=== PATIENT | male | born 1995 | race Caucasian/White ===

== ENCOUNTER 2016-12-17 19:05 | Inpatient (IN) | payer BC ==
[~2016-12-17] VITALS: Ht 180.3 cm; Wt 61.8 kg
[2016-12-17] MEDS ORDERED: ZYPR5TAB2 PO (19:17)
[2016-12-17] MEDS ORDERED: CEPH500C PO (19:17)
[2016-12-17] MEDS ORDERED: MELA5TAB21 PO (22:13)
[2016-12-18] MEDS ORDERED: ACETAMINOPHEN TAB 650MG DOSE (2X325MG) PO PRN (02:00)
[2016-12-18] MEDS ORDERED: MOM 30ML SUSPENSION UDC PO PRN (02:00)
[2016-12-18] MEDS ORDERED: MAALOX 30 ML SUSP *UDC PO PRN (02:00)
[2016-12-18 02:45] VITALS: BP 113/75
[2016-12-18] MEDS: OLANZapine 5 MG TAB PO SCH ×2 (03:22→20:55)
[2016-12-18] MEDS: CEPHALEXIN 500 MG CAP PO SCH ×3 (09:05→20:55)
[2016-12-18] MEDS: NICOTINE 7 MG/24 HR TRANSDERMAL TD SCH (09:05)
[2016-12-18 18:00] VITALS: BP 112/62
[2016-12-18] MEDS: traZODone 50 MG TAB PO PRN (20:55)
--- NOTE | 2016-12-19 01:47 | MHHPE ---
DATE OF ADMISSION: 12/18/2016 LEGAL STATUS ON ADMISSION: 9.39 legal status CHIEF COMPLAINT: "I have been feeling very depressed." HISTORY OF PRESENT ILLNESS: 20-year-old male with history of anxiety, depression and marijuana dependency, admitted to our unit in a 9.39 legal status. According to the chart, the patient was transferred from [place] after cutting himself with a steak knife to the head and arm. The patient is depressed and is displaying self destructive behavior. The patient was recently admitted to [facility] and discharged home to his family. The patient reports significant mood and emotional swings where he becomes very angry and "blows up." He yells and hurts himself when "I don't smoke pot." The patient admits the use of marijuana on a daily basis four or five times a day. He states that he is trying to stop. Before admission, he had an altercation with his mother and sister. His sister was calling the police and says that he panicked, he grabbed a steak knife from the kitchen and started hitting himself in the head. The patient also has old cuts in the arms from last Tuesday. The patient is calm during the interview, but admits that he becomes easily agitated. The patient also admits his marijuana dependency and wants to stop using. The patient is single and living with his parents, who are very supportive. During the interview, there is no evidence of psychotic symptoms. No auditory or visual hallucinations or delusions. PAST MEDICAL HISTORY: The patient denies any acute medical problems. PAST PSYCHIATRIC HISTORY: The patient reports being diagnosed of depression and anxiety. He says that he sees a therapist once a week. He has been prescribed Zyprexa 5 mg at bedtime by his primary care provider. The patient admits that he has a marijuana dependency. FAMILY PSYCHIATRIC HISTORY: The patient reports that his mother's side of the family has the tendency to depression and anxiety. No substance abuse in his relatives. SOCIAL HISTORY: The patient was raised by both parents. The patient reports a completely normal childhood with no abuse or neglect. The patient finished high school. The patient is currently "in between jobs." The patient is now living with his parents but was living independently when he was working. 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 His support system is reduced to his parents. SUBSTANCE ABUSE HISTORY: As above. The patient admits that he has a marijuana dependency and smokes four to five joints a day. REVIEW OF SYSTEMS: CONSTITUTIONAL: No weight loss, fevers, chills, weakness, or fatigue. HEENT: No visual loss, blurry vision, double vision, yellow sclerae. No hearing loss, sneezing, congestion, runny nose or sore throat. SKIN: No rash or itching. CARDIOVASCULAR: No chest pain, chest pressure, chest discomfort, palpitations, or edema. RESPIRATORY: No shortness of breath, cough or sputum. GASTROINTESTINAL: No anorexia, nausea, vomiting, or diarrhea. No abdominal pain or blood. GENITOURINARY: No burning or pain on urination. NEUROLOGIC: No headache, dizziness, syncope, paralysis, ataxia, numbness or tingling. MUSCULOSKELETAL: No muscle, back pain, joint pain or stiffness. HEMATOLOGIC: No anemia, bleeding or bruising. LYMPHATICS: No history of splenectomy. ENDOCRINOLOGIC: No reports of sweating, cold or heat intolerance. No polyuria or polydipsia. ALLERGIES: No history of asthma, hives, eczema or rhinitis. PHYSICAL EXAMINATION : As per physician's emergency room physician assistant. LABORATORIES ON ADMISSION: No laboratories were drawn in the emergency department. MENTAL STATUS EXAMINATION: The patient is dressed in [facility]. The patient is cooperative during examination. Speech is clear, coherent with normal rate and is spontaneous. The patient has fair eye contact. . Mood is anxious and depressed. Affect is restricted and labile. The patient is oriented to time, place, person and situation. Maintains attention and concentration correctly. Instant recall, recent and remote memory are intact. Thought processes are coherent, logical and goal directed. The patient does not have auditory or visual hallucinations. The patient does not have paranoid, persecutory, somatic, grandiose or buddhism delusions. The patient is denying homicidal thoughts. The patient was admitted with self inflicted wounds on the head and suicidal ideation. Judgment and insight are limited. DIAGNOSES: AXIS I: Unspecified depressive disorder, rule out major depressive disorder versus adjustment disorder with depressed mood. Rule out substance induced mood disorder. Marijuana dependency. AXIS II: Deferred. AXIS III: None acute. INITIAL TREATMENT PLAN: Patient was admitted on a 9.39 legal status. Complete history was obtained. With his permission, family will be contacted, and database will be expanded. His medication regimen will be reviewed and changed accordingly. He will be provided with protected environment. He will be treated with individual, group, and milieu therapies. He will also receive supportive psychoeducation. Discharge planning will commence immediately. Length of stay will be between 5 and 7 days. Outpatient followup will be strongly recommended. The treatment plan will focus initially on depression, risk for suicide, and substance abuse.
[2016-12-19 06:33] VITALS: BP 102/60
[2016-12-19] MEDS: NICOTINE 7 MG/24 HR TRANSDERMAL TD SCH (07:57)
[2016-12-19] MEDS: CEPHALEXIN 500 MG CAP PO SCH ×3 (07:57→21:02)
[2016-12-19 18:00] VITALS: BP 125/57
[2016-12-19] MEDS: traZODone 50 MG TAB PO PRN (21:03)
[2016-12-19] MEDS: OLANZapine 5 MG TAB PO SCH (21:03)
--- NOTE | 2016-12-20 01:46 | IPN ---
DATE OF SERVICE: 12/19/2016 21-year-old male with history of anxiety, depression, and marijuana dependency, admitted after he cut himself with a steak knife forehead and the arm. SUBJECTIVE: "I'm feeling a little better." OBJECTIVE: No major changes from yesterday, although he appears to be less depressed. He adapted well to the unit and he is interacting with other patients and staff. Patient denies any side effects from the medication. The patient reports better sleep after started with Zyprexa and trazodone. MENTAL STATUS EXAMINATION: Patient is dressed in [facility]. Patient is cooperative during the exam, has fair eye contact. Speech is slow and monotone. Mood is depressed and anxious. Affect is restricted. No evidence of delusions or hallucinations. Memory is fair. Patient is fully oriented. Associations are intact. Thinking is logical. Thought content is appropriate. Patient is able to contract for safety during the interview and denies suicidal or homicidal ideation. Insight and judgment is limited. ASSESSMENT: 1. Depression. 2. Cannabis dependency. PLAN: 1. Continue Zyprexa 5 mg by mouth nightly. 2. Trazodone 50 mg by mouth nightly as needed for insomnia. 3. Continue medication management, individual and group therapy.
[2016-12-20 06:49] VITALS: BP 112/58
[2016-12-20] MEDS: NICOTINE 7 MG/24 HR TRANSDERMAL TD SCH (08:21)
[2016-12-20] MEDS: CEPHALEXIN 500 MG CAP PO SCH ×3 (08:21→20:55)
--- NOTE | 2016-12-20 09:42 | MHIPNPDOC ---
[facility] Progress Note Progress Note DATE OF SERVICE: 12/20/16 HISTORY: Patient is 21-year-old single male who was transferred from [place] after cutting himself with a steak knife to the head and arm after argument with girlfriend who is mother of his 2 children, has history of anxiety, depression, and self-injurious behavior, uses marijuana daily and also relates on daily basis. Patient indicates he experiences agitation, mood swings, and harms himself when he does not have access to marijuana, notes he generally smokes approximately 4 times per day. Patient was recently discharged from [facility], indicates he has been admitted to [place] [id number] in the recent past. Patient has 2 children who are currently living in [place] with her mother. Assistant Professor Of Archaeology met with patient today to assess treatment progress on inpatient unit. Patient indicates he is feeling considerably better, reports improvement to symptoms of anxiety and depression, denies suicidal and homicidal ideation, denies audiovisual hallucinations, denies urge to engage in self-injurious behavior. Patient speaks openly about events which led to current hospitalization and informs tag writer he is aware he is in need of substance abuse treatment and is in agreement to participating in outpatient, but not inpatient treatment at this time. Patient denies symptoms of craving or withdrawal informs tag writer he is now not smoked marijuana for 72 hours, denies urge and states he feels motivated to continue with abstinence. Patient reports improvement to sleep, states appetite is stable, reports improvement to energy level, and denies challenges with concentration and focus. Patient has multiple lacerations to forearms and sutures to forehead, denies symptoms of physical pain, and presents with no signs of acute distress at time of interaction. Patient notes he trialed BuSpar in the past which "made me sick," started Celexa noting "the medication was taking too long," adds he was started on Zyprexa last Tuesday by PCM at the request of outpatient psychotherapist, notes medication is working "absolutely phenomenally." VITAL SIGNS: See below. NEW TEST RESULTS: No new results. Patient denies chronic medical problems and denies history of seizure or head injury. EKG pending CURRENT MEDICATIONS: See below. MENTAL STATUS EXAMINATION: Patient is a 21-year old male, who is easily engaged, pleasant and cooperative, exhibits adequate personal hygiene, makes good eye contact, ambulates with steady gait, appears stated age, presents with multiple lacerations to forearms and sutures to 4 head Speech: Is of normal rate, rhythm, volume, spontaneous, coherent Language skills are within normal limits Thought processes including: Linear, logical, goal-directed. Thought content: Logical, rational, no tangentiality noted no paranoia. Abstract reasoning, and computation: Appear intact Description of associations: Intact Description of abnormal or psychotic thoughts: Denies suicidal or homicidal ideation, denies auditory or visual hallucinations, denies urge to engage in self-injurious behavior, does not appear to be responding to internal stimuli, does not endorse bizarre paranoid ideation, denies preoccupation with violence and/or session. Judgment: Poor, some improvement during treatment. Insight: Limited, some improvement noted. Orientation: A and O 3. Recent and remote memory: Appears intact. Attention span and concentration: Adequate. Language: Adequate. Fund of knowledge: Adequate. Mood: "Much better, hopeful now." Patient appears depressed and anxious, no mood lability noted at time of interaction Affect: Constricted, some brightening, congruent with mood DIAGNOSES: Unspecified depressive disorder, rule out major depressive disorder, rule out substance-induced mood disorder, marijuana use disorder ASSESSMENT: Patient is 21-year-old male who appears to be adjusting to unit well , is visible, pleasant and cooperative, and participating in unit programming. Patient states he is feeling "much better" since starting olanzapine, adds he no longer feels "mentally exhausted." Patient has been utilizing trazodone for sleep with good effect. Patient denies medication side effects. Patient denies current suicidal and homicidal ideation and verbalizes awareness of how to access supportive services on the unit if needed. Will monitor patient's response to medications and we'll monitor for side effects, will also evaluate patient's safety, resolution of suicidal ideation and urge to engage in self- injurious behavior, and discharge readiness. Patient indicates when compared for discharge he plans to discharge to home with parents who live in [place] where he will remain for 30 days while he participates in outpatient substance abuse treatment. Recommendation made for inpatient substance abuse treatment, patient is declining at this time. Patient states he is also agreeable to participating in psychotherapy and medication management services. MANAGEMENT PLAN: Continue olanzapine 5 mg po q hs and trazodone 50 mg po hs PRN insomnia Maintain safety precautions Patient to attend groups and participate in unit programming to develop coping strategies Engage patient in discharge planning process and arrange meeting with support system to ensure safe discharge planning when appropriate Patient to follow up with PCM upon discharge TIME SPENT: 35 minutes. Vital Signs Vital Signs Date Time Temp Pulse Resp B/P (MAP) Pulse Ox O2 Delivery O2 Flow Rate FiO2 12/20/16 06:49 97.3 61 16 112/58 (76) 12/18/16 02:45 98 Room Air Current Medications Current Medications Acetaminophen (Tylenol Tab) 650 mg Q6HP PRN PO HEADACHE or DISCOMFORT; Start at 02:00; Stop 01/17/17 at 01:59 Al Hydrox/Mg Hydrox/Simethicone (Mylanta) 30 ml Q4HP PRN PO HEARTBURN/ INDIGESTION; Start 12/18/16 at 02:00; Stop 01/17/17 at 01:59 Cephalexin Monohydrate (Keflex) 500 mg TID PO Last administered on 12/20/16 08 :21; Start 12/18/16 at 09:00; Stop 12/25/16 at 08:59 Home Med (Med Rec Complete!) ASDIRECTED XX ; Start 12/17/16 at 22:15; Stop 07/24 at 22:20; Status DC Magnesium Hydroxide (Milk Of Magnesia) 30 ml DAILYPRN PRN PO CONSTIPATION; Start 12/18/16 at 02:00; Stop 01/17/17 at 01:59 Nicotine (Nicoderm Cq 7 Mg) 1 patch DAILY TD Last administered on 12/20/16 08: 21; Start 12/18/16 at 09:00; Stop 01/17/17 at 08:59 Olanzapine (ZyPREXA) 5 mg QHS PO Last administered on 12/19/16 21:03; Start at 21:00; Stop 01/16/17 at 20:59 Trazodone HCl (Desyrel) 50 mg QHSP PRN PO INSOMNIA Last administered on 21:03; Start 12/18/16 at 02:00; Stop 01/17/17 at 01:59 Allergies Coded Allergies: No Known Drug Allergy (Verified Allergy, Unknown, 12/17/16) Buspirone (Unverified Adverse Reaction, Unknown, Dizziness, Nausea, Vomiting, 12/17/16) Rika Chakraborty December 20, 2016 09:42
--- NOTE | 2016-12-20 10:14 | HPEPDOC ---
Medical History and Physical Date of Admission December 18, 2016 at 01:49 History and Physical PCP: Dr Lyle Arreola [facility]. ATTENDING: Dr. Idris García HPI: 20yoM admitted to [facility] for unspecified depressive disorder, being medically examined today. Patient was transferred from [facility] after stabbing himself with a kitchen knife several times. Denies any fevers, chills, weakness, fatigue, ROMERO, CP, SOB, cough, palpitations, abdominal pain, N/V/D or changes in bowel or bladder habits. PMHx: Depression Anxiety Insomnia Self-mutilation History of SI with admissions to [facility] 01/21, 11/22 and 12/22. Tetanus vaccine 05/23 per patient PSHX: Denies SOCHX: Resides in: [facility] Marital Status: Single Kids: 2 Employment: Unemployed Tobacco use: Vapes daily. ETOH: Denies Illicit Drugs: Marijuana daily IV Drug Use: Denies Tattoos done unprofessionally: Denies FAMHX: Mother: Alive, well Father: Alive, well Siblings: Alive, well Children: Alive, well Unexpected deaths due to medical reasons: None. ROS: As noted in HPI, otherwise 11pt ROS of systems reviewed and unremarkable. PE: GEN: 20 yo M, appears stated age. Well-nourished, well developed. No acute distress. Alert and oriented x 3. Pleasant, interactive. HEENT: Normocephalic, atraumatic. Pupils are equal, round, and reactive to light. Extraocular movements are intact. No nystagmus appreciated. Sclera are nonicteric. Conjunctiva without injection. Nose midline. Nasal turbinates without bogginess. EACs both patent BL. TMs both visualized and mcelroy with good cone of light, no bulging or erythema. No facial asymmetry. Moist mucous membranes. Dentition fair. Pharynx pink and moist, no cobblestoning. Neck supple , trachea midline. No lymphadenopathy or thyromegaly appreciated. CHEST: Regular rate and rhythm, +S1, +S2 LUNGS: Clear to auscultation bilaterally. No wheezes, rales, or rhonchi. Breathing appears symmetric and easy. Patient is speaking in full sentences. No accessory muscle use. ABD: Round, soft, non-tender, non-distended. +Bowel sounds throughout. No rebound or guarding. No costovertebral angle tenderness. EXT: Pulses 2+ bilaterally dorsalis pedis and radial. No lower extremity edema appreciated. SKIN: [place], dry, warm. Capillary refill <2sec. No rashes. Sutures are intact anterior scalp and right ear. He has healing lacerations to the forearms which he states are from last Tuesday. NEURO: Alert and oriented x 3. Cranial nerves III-XII are intact. No focal deficits appreciated. EKG: Pending. Labs pending A&P: 20yoM admitted to [facility] for unspecified depressive disorder 1. Psych. Plan per Psychiatry. Obtain baseline EKG to assure the safety of psychiatric medications as they can prolong the QT interval. 2. Nicotine dependence. Patch available. 3. Lacerations. Sutures intact. No signs of infection at this time. Keep areas clean and dry. Apply Bactroban as needed. Continue Keflex 500 mg 3 times a day 10 days. 4. Follow up with PCP on discharge. 5. Substance use. Per psychiatry. 6. Staff member Nishant present throughout exam. Vital Signs Vital Signs Date Time Temp Pulse Resp B/P (MAP) Pulse Ox O2 Delivery O2 Flow Rate FiO2 12/20/16 06:49 97.3 61 16 112/58 (76) 12/18/16 02:45 98 Room Air Home Medications Scheduled Cephalexin Monohydrate (Cephalexin) 500 Mg Cap, 500 MG PO DAILY For 10 days. New RX; PT has not started first dose Olanzapine (Zyprexa) 5 Mg Tab, 5 MG PO QHS Scheduled PRN Melatonin (Melatonin) 5 Mg Tab, 5 MG PO QHS PRN for SLEEP Allergies Coded Allergies: No Known Drug Allergy (Verified Allergy, Unknown, 12/17/16) Buspirone (Unverified Adverse Reaction, Unknown, Dizziness, Nausea, Vomiting, 12/17/16) Harriett [place] December 20, 2016 10:14
[2016-12-20] MEDS ORDERED: MUPIROCIN 2% CREAM 30GM TOP PRN (10:15)
[2016-12-20 18:00] VITALS: BP 124/84
[2016-12-20] MEDS: traZODone 50 MG TAB PO PRN (20:55)
[2016-12-20] MEDS: OLANZapine 5 MG TAB PO SCH (20:55)
[2016-12-21 06:31] VITALS: BP 118/57
[2016-12-21 07:53] LABS: MEAN CORPUSCULAR HEMOGLOBIN 30.7 pg (27.0-33.0); MEAN CORPUSCULAR HGB CONC 34.1 g/dl (32.0-36.5); RED CELL DISTRIBUTION WIDTH 12.7 % (11.5-14.5); WHITE BLOOD COUNT 5.8 K/mm3 (4.0-10.0)
[2016-12-21] MEDS: CEPHALEXIN 500 MG CAP PO SCH ×3 (08:20→20:37)
[2016-12-21] MEDS: NICOTINE 7 MG/24 HR TRANSDERMAL TD SCH (08:21)
[2016-12-21 08:35] LABS: ALBUMIN 4.3 GM/DL (3.2-5.2); ALBUMIN/GLOBULIN RATIO 1.54 (1.00-1.93); ALKALINE PHOSPHATASE 82 U/L (45-117); ALT/SGPT 20 U/L (12-78); ANION GAP 9 MEQ/L (8-16); AST/SGOT 15 U/L (15-37); BILIRUBIN,TOTAL 0.4 MG/DL (0.2-1.0); BLOOD UREA NITROGEN 12 MG/DL (7-18); CALCIUM LEVEL 8.8 MG/DL (8.5-10.1); CARBON DIOXIDE LEVEL 28 MEQ/L (21-32); CHLORIDE LEVEL 107 MEQ/L (98-107); CREATININE FOR GFR 1.03 MG/DL (0.70-1.30); GLOMERULAR FILTRATION RATE > 60.0 (>60); GLUCOSE, FASTING 95 MG/DL (70-105); POTASSIUM SERUM 4.2 MEQ/L (3.5-5.1); SODIUM LEVEL 144 MEQ/L (136-145); TOTAL PROTEIN 7.1 GM/DL (6.4-8.2)
--- NOTE | 2016-12-21 17:46 | MHIPNPDOC ---
[facility] Progress Note Progress Note DATE OF SERVICE: 12/21/16 HISTORY: Patient is 21-year-old single male who was transferred from [place] after cutting himself with a steak knife to the head and arm after argument with girlfriend who is mother of his 2 children, has history of anxiety, depression, and self-injurious behavior, uses marijuana daily and also relates on daily basis. Patient indicates he experiences agitation, mood swings, and harms himself when he does not have access to marijuana, notes he generally smokes approximately 4 times per day. Patient was recently discharged from [facility], indicates he was admitted to [place] [id number] in the recent past in 01/21, 11/22, and 12/22. Patient has 2 children who are currently living in [place] with her mother. Grizzlyman met with patient today to assess treatment progress on inpatient unit. Patient indicates his mood continues to improve and he reports some reduction to symptoms of anxiety, denies suicidal and homicidal ideation, denies audiovisual hallucinations, denies urge to engage in self-injurious behavior. Patient denies symptoms of craving or withdrawal, again speaks openly regarding concerns he has of repeating self-injurious behavior exhibited just prior to current hospitalization, states he feels motivated to participate in outpatient substance abuse treatment, is declining inpatient substance abuse treatment at this time. Patient reports improvement to sleep, states appetite is stable, reports improvement to energy level, and denies challenges with concentration and focus. Patient has multiple lacerations to forearms and sutures to forehead , denies symptoms of physical pain, and presents with no signs of acute distress at time of interaction. Patient states parents have been visiting him here in the hospital, indicates family is supportive. Patient denies symptoms of physical pain and presents with no signs of acute distress at time of interaction Patient notes he trialed BuSpar in the past which "made me sick," started Celexa noting "the medication was taking too long," adds he was started on Zyprexa last Tuesday by PCM at the request of outpatient psychotherapist, notes medication is working "absolutely phenomenally." VITAL SIGNS: See below. NEW TEST RESULTS: No new results. Patient denies chronic medical problems and denies history of seizure or head injury. EKG pending CURRENT MEDICATIONS: See below. MENTAL STATUS EXAMINATION: Patient is a 21-year old male, who is easily engaged, pleasant and cooperative, exhibits adequate personal hygiene, makes fair eye contact, ambulates with steady gait, appears stated age, presents with multiple lacerations to forearms and sutures to 4 head Speech: Is of normal rate, rhythm, volume, spontaneous, coherent Language skills are within normal limits Thought processes including: Linear, logical, goal-directed. Thought content: Logical, rational, no tangentiality noted or paranoia. Abstract reasoning, and computation: Appear intact Description of associations: Intact Description of abnormal or psychotic thoughts: Denies suicidal or homicidal ideation, denies auditory or visual hallucinations, denies urge to engage in self-injurious behavior, does not appear to be responding to internal stimuli, does not endorse bizarre paranoid ideation, denies preoccupation with violence and/or session. Judgment: Poor, some improvement during treatment. Insight: Limited, continues to improve Orientation: A and O 3. Recent and remote memory: Appears intact. Attention span and concentration: Adequate. Language: Adequate. Fund of knowledge: Adequate. Mood: "I feel okay, I feel hopeful about rehabilitation and getting my life back together." Patient appears less depressed, continues to appear anxious, no mood lability noted at time of interaction Affect: Constricted, some brightening, congruent with mood DIAGNOSES: Unspecified depressive disorder, rule out major depressive disorder, rule out substance-induced mood disorder, marijuana use disorder ASSESSMENT: Patient is 21-year-old male who continues to adjust to unit, is visible, pleasant and cooperative, and participating in unit programming. Patient states he continues to feel olanzapine is helpful In controlling symptoms. Patient has been utilizing trazodone for sleep with good effect. Patient denies medication side effects. Patient denies current suicidal and homicidal ideation and verbalizes awareness of how to access supportive services on the unit if needed. Will monitor patient's response to medications and we'll monitor for side effects, will also evaluate patient's safety, resolution of suicidal ideation and urge to engage in self-injurious behavior, and discharge readiness. Patient indicates when prepared for discharge he plans to discharge to home with parents who live in [place] where he will remain for 30 days while he participates in outpatient substance abuse treatment. Recommendation made for inpatient substance abuse treatment, patient is declining at this time. Patient states he is also agreeable to participating in psychotherapy and medication management services. MANAGEMENT PLAN: Continue olanzapine 5 mg po q hs and trazodone 50 mg po hs PRN insomnia Maintain safety precautions Patient to attend groups and participate in unit programming to develop coping strategies Engage patient in discharge planning process and arrange meeting with support system to ensure safe discharge planning when appropriate Patient to follow up with PCM upon discharge TIME SPENT: 35 minutes. Vital Signs Vital Signs Date Time Temp Pulse Resp B/P (MAP) Pulse Ox O2 Delivery O2 Flow Rate FiO2 12/21/16 06:31 97.2 73 16 118/57 (77) 12/18/16 02:45 98 Room Air Laboratory Data 24H Labs Laboratory Tests 2 12/21/16 07:35: Anion Gap 9, Glomerular Filtration Rate > 60.0, Blood Urea Nitrogen 12, Creatinine 1.03, Sodium Level 144, Potassium Level 4.2, Chloride Level 107, Carbon Dioxide Level 28, Calcium Level 8.8, Aspartate Amino Transf (AST/SGOT) 15 , Alanine Aminotransferase (ALT/SGPT) 20, Alkaline Phosphatase 82, Total Bilirubin 0.4, Total Protein 7.1, Albumin 4.3, Albumin/Globulin Ratio 1.54, Thyroid Stimulating Hormone (TSH) 1.290 CBC/BMP Laboratory Tests 12/21/16 07:35 Red Blood Count 4.83, Mean Corpuscular Volume 90.0, Mean Corpuscular Hemoglobin 30.7, Mean Corpuscular Hemoglobin Concent 34.1, Red Cell Distribution Width 12.7 , Calcium Level 8.8, Aspartate Amino Transf (AST/SGOT) 15, Alanine Aminotransferase (ALT/SGPT) 20, Alkaline Phosphatase 82, Total Bilirubin 0.4, Total Protein 7.1, Albumin 4.3 Current Medications Current Medications Acetaminophen (Tylenol Tab) 650 mg Q6HP PRN PO HEADACHE or DISCOMFORT; Start at 02:00; Stop 01/17/17 at 01:59 Al Hydrox/Mg Hydrox/Simethicone (Mylanta) 30 ml Q4HP PRN PO HEARTBURN/ INDIGESTION; Start 12/18/16 at 02:00; Stop 01/17/17 at 01:59 Cephalexin Monohydrate (Keflex) 500 mg TID PO Last administered on 12/21/16t 15 :26; Start 12/18/16 at 09:00; Stop 12/25/16 at 08:59 Home Med (Med Rec Complete!) ASDIRECTED XX ; Start 12/17/16 at 22:15; Stop 07/24 at 22:20; Status DC Magnesium Hydroxide (Milk Of Magnesia) 30 ml DAILYPRN PRN PO CONSTIPATION; Start 12/18/16 at 02:00; Stop 01/17/17 at 01:59 Mupirocin (Bactroban 2% Cream) 1 dose BIDP PRN TOP REDNESS/IRRITATION; Start at 10:15; Stop 01/19/17 at 10:14 Nicotine (Nicoderm Cq 7 Mg) 1 patch DAILY TD Last administered on 12/21/16 08: 21; Start 12/18/16 at 09:00; Stop 01/17/17 at 08:59 Olanzapine (ZyPREXA) 5 mg QHS PO Last administered on 12/20/16 20:55; Start at 21:00; Stop 01/16/17 at 20:59 Trazodone HCl (Desyrel) 50 mg QHSP PRN PO INSOMNIA Last administered on 20:55; Start 12/18/16 at 02:00; Stop 01/17/17 at 01:59 Allergies Coded Allergies: No Known Drug Allergy (Verified Allergy, Unknown, 12/17/16) Buspirone (Unverified Adverse Reaction, Unknown, Dizziness, Nausea, Vomiting, 12/17/16) Rika Chakraborty December 21, 2016 17:46
[2016-12-21 18:07] VITALS: BP 113/59
[2016-12-21] MEDS: traZODone 50 MG TAB PO PRN (20:37)
[2016-12-21] MEDS: OLANZapine 5 MG TAB PO SCH (20:37)
--- NOTE | 2016-12-22 06:15 | ECGEPIP ---
Stationary ECG Study [facility] Test Date: 2016-12-21 Pat Name: RAVIN EGAN Department: Room: [place] [address] Gender: M Can Piler: NEGAR : 1995 Requested By: Harriett Stanford Order Number: [id number] Reading MD: Rae Caban Measurements Intervals [place] Rate: 69 P: 50 IN: 138 QRS: 75 QRSD: 95 T: 47 QT: 375 QTc: 402 Interpretive Statements SINUS RHYTHM WITH SINUS ARRHYTHMIA PROMINENT VOLTAGE PROBABLE SEPTAL EARLY REPOLAR U WAVES NO PRIOR Electronically Signed On 12-22-2016 6:14:48 EDT by Rae Caban
[2016-12-22 06:45] VITALS: BP 109/65
[2016-12-22] MEDS: CEPHALEXIN 500 MG CAP PO SCH ×3 (08:01→20:38)
[2016-12-22] MEDS: NICOTINE 7 MG/24 HR TRANSDERMAL TD SCH (08:02)
--- NOTE | 2016-12-22 08:57 | MHIPNPDOC ---
[facility] Progress Note Progress Note DATE OF SERVICE: 12/22/16 HISTORY: Patient is 21-year-old single male who was transferred from [place] after cutting himself with a steak knife to the head and arm after argument with girlfriend who is mother of his 2 children, has history of anxiety, depression, and self-injurious behavior, uses marijuana daily and also relates on daily basis. Patient indicates he experiences agitation, mood swings, and harms himself when he does not have access to marijuana, notes he generally smokes approximately 4 times per day. Patient was recently discharged from [facility], indicates he was admitted to [place] [address] in the recent past in 01/21, 11/22, and 12/22. Patient has 2 children who are currently living in [place] with her mother. Desk Officer met with patient today to assess treatment progress on inpatient unit. Patient indicates he is feeling "much better," denies symptoms of anxiety and depression, denies suicidal and homicidal ideation, denies audiovisual hallucinations, denies urge to engage in self-injurious behavior. Patient denies symptoms of craving or withdrawal, verbalizes insight in terms of need for substance abuse treatment and psychotherapy to address impulsivity and self- injurious behavior, reiterates today he feels motivated to participate in outpatient substance abuse treatment, is declining inpatient substance abuse treatment at this time, denies symptoms of craving or withdrawal. Patient indicates he is also agreeable to participating in outpatient psychotherapy. Patient states he is sleeping well, notes appetite is stable, reports improvement to energy level, and denies challenges with concentration and focus. Patient has multiple lacerations to forearms and sutures to forehead which appear to be healing without complication, denies symptoms of physical pain, and presents with no signs of acute distress at time of interaction. Patient reiterates he feels he has strong support system, parents have been visiting, indicates family is supportive. Of Note: Patient notes he trialed BuSpar in the past which "made me sick," started Celexa noting "the medication was taking too long," adds he was started on Zyprexa last Tuesday by PCM at the request of outpatient psychotherapist, notes medication is working "absolutely phenomenally." VITAL SIGNS: See below. 12/22/16 NEW TEST RESULTS: No new results. Patient denies chronic medical problems and denies history of seizure or head injury. UDS completed by referring hospital on 12/17/16 negative for opiates, benzodiazepines, and cocaine 12/22/16 EKG SINUS RHYTHM WITH SINUS ARRHYTHMIA PROMINENT VOLTAGE PROBABLE SEPTAL EARLY REPOLAR U WAVES NO PRIOR. Patient is asymptomatic, attempts X 3 made to reach hospitalist to request consult to evaluate EKG. CURRENT MEDICATIONS: See below. MENTAL STATUS EXAMINATION: Patient is a 21-year old male, who is easily engaged, pleasant and cooperative, exhibits adequate personal hygiene, makes fair eye contact, ambulates with steady gait, appears stated age, presents with multiple lacerations to forearms and sutures to 4 head Speech: Is of normal rate, rhythm, volume, spontaneous, coherent Language skills are within normal limits Thought processes including: Linear, logical, goal-directed. Thought content: Logical, rational, no tangentiality noted or paranoia. Abstract reasoning, and computation: Appear intact Description of associations: Intact Description of abnormal or psychotic thoughts: Denies suicidal or homicidal ideation, denies auditory or visual hallucinations, denies urge to engage in self-injurious behavior, does not appear to be responding to internal stimuli, does not endorse bizarre paranoid ideation, denies preoccupation with violence and/or session. Judgment: Poor, some improvement during treatment. Insight: Limited, continues to improve Orientation: A and O 3. Recent and remote memory: Appears intact. Attention span and concentration: Adequate. Language: Adequate. Fund of knowledge: Adequate. Mood: "I feel better and I feel lois I'm ready to go home with my parents." Patient denies anxiety and depression, no mood lability noted at time of interaction Affect: Full range, brightens frequently and appropriately, congruent with mood DIAGNOSES: Unspecified depressive disorder, rule out major depressive disorder, rule out substance-induced mood disorder, marijuana use disorder ASSESSMENT: Patient is 21-year-old male who continues to adjust to unit, is visible, pleasant and cooperative, and participating in unit programming. Patient states he continues to feel olanzapine is helpful in controlling symptoms. Patient has been utilizing trazodone for sleep with good effect. Patient denies medication side effects. Patient denies current suicidal and homicidal ideation and verbalizes awareness of how to access supportive services on the unit if needed. Will monitor patient's response to medications and will monitor for side effects, will also evaluate patient's safety, resolution of suicidal ideation and urge to engage in self-injurious behavior, and discharge readiness. Will begin to prepare patient for discharge which is slated for either or Tuesday, appraisal coordinator is currently attempting to make arrangements with patient's parents for family meeting. Patient indicates when discharged he plans to discharge to home with parents who live in [place] where he will remain for 1-2 months while he participates in outpatient substance abuse treatment. Recommendation made for inpatient substance abuse treatment, patient is declining at this time. Patient states he is also agreeable to resuming outpatient psychotherapy and medication management services through PCM. MANAGEMENT PLAN: Continue olanzapine 5 mg po q hs and trazodone 50 mg po hs PRN insomnia Maintain safety precautions Patient to attend groups and participate in unit programming to develop coping strategies Engage patient in discharge planning process and arrange meeting with support system to ensure safe discharge planning when appropriate Patient to follow up with PCM upon discharge TIME SPENT: 35 minutes. Vital Signs Vital Signs Date Time Temp Pulse Resp B/P (MAP) Pulse Ox O2 Delivery O2 Flow Rate FiO2 12/22/16 06:45 98.1 63 18 109/65 (80) 12/18/16 02:45 98 Room Air Current Medications Current Medications Acetaminophen (Tylenol Tab) 650 mg Q6HP PRN PO HEADACHE or DISCOMFORT; Start at 02:00; Stop 01/17/17 at 01:59 Al Hydrox/Mg Hydrox/Simethicone (Mylanta) 30 ml Q4HP PRN PO HEARTBURN/ INDIGESTION; Start 12/18/16 at 02:00; Stop 01/17/17 at 01:59 Cephalexin Monohydrate (Keflex) 500 mg TID PO Last administered on 12/22/16t 08 :01; Start 12/18/16 at 09:00; Stop 12/25/16 at 08:59 Home Med (Med Rec Complete!) ASDIRECTED XX ; Start 12/17/16 at 22:15; Stop 07/24 at 22:20; Status DC Magnesium Hydroxide (Milk Of Magnesia) 30 ml DAILYPRN PRN PO CONSTIPATION; Start 12/18/16 at 02:00; Stop 01/17/17 at 01:59 Mupirocin (Bactroban 2% Cream) 1 dose BIDP PRN TOP REDNESS/IRRITATION; Start at 10:15; Stop 01/19/17 at 10:14 Nicotine (Nicoderm Cq 7 Mg) 1 patch DAILY TD Last administered on 12/22/16 08: 02; Start 12/18/16 at 09:00; Stop 01/17/17 at 08:59 Olanzapine (ZyPREXA) 5 mg QHS PO Last administered on 12/21/16 20:37; Start at 21:00; Stop 01/16/17 at 20:59 Trazodone HCl (Desyrel) 50 mg QHSP PRN PO INSOMNIA Last administered on 20:37; Start 12/18/16 at 02:00; Stop 01/17/17 at 01:59 Allergies Coded Allergies: No Known Drug Allergy (Verified Allergy, Unknown, 12/17/16) Buspirone (Unverified Adverse Reaction, Unknown, Dizziness, Nausea, Vomiting, 12/17/16) Rika Chakraborty December 22, 2016 08:57
[2016-12-22 18:01] VITALS: BP 134/70
[2016-12-22] MEDS: OLANZapine 5 MG TAB PO SCH (20:38)
[2016-12-22] MEDS: traZODone 50 MG TAB PO PRN (20:38)
[2016-12-23 06:34] VITALS: BP 116/80
[2016-12-23] MEDS: CEPHALEXIN 500 MG CAP PO SCH (08:08)
[2016-12-23] MEDS: NICOTINE 7 MG/24 HR TRANSDERMAL TD SCH (08:09)
[2016-12-23] MEDS ORDERED: CEPH500C PO (09:44)
[2016-12-23] MEDS ORDERED: OLAN5TAB PO (10:50)
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
== END 2016-12-23 11:25 | disposition home or self-care (01) | DRG 754 ==
LOC: M ED 20:08 → M ED INP 12-18 01:49 → M PSY 12-18 02:40
PROVIDERS: ADMIT Psychiatry & Neurology Psychiatry; ATTEND Psychiatry & Neurology Psychiatry
DX: F32.9 Major depressive disorder, single episode, unspecified (principal); F19.24 Other psychoactive substance dependence with psychoactive substance-induced mood disorder; F12.90 Cannabis use, unspecified, uncomplicated; Z91.5 Personal history of self-harm; F17.290 Nicotine dependence, other tobacco product, uncomplicated; S01.01XD Laceration without foreign body of scalp, subsequent encounter; S01.311D Laceration without foreign body of right ear, subsequent encounter; Z88.8 Allergy status to other drugs, medicaments and biological substances; Z79.899 Other long term (current) drug therapy; X78.1XXD Intentional self-harm by knife, subsequent encounter; Y92.019 Unspecified place in single-family (private) house as the place of occurrence of the external cause; Y93.89 Activity, other specified; Y99.9 Unspecified external cause status